=== PATIENT | female | born 1975 | race Two or more races ===

== ENCOUNTER 2020-12-11 10:34 | Emergency (ER) | payer OTHER ==
[2020-12-11 10:39] VITALS: BP 125/78; PULSE 62; TEMP 98.1; BMI 30.9
[2020-12-11] MEDS ORDERED: DIPHTH,PERTUSS(ACELL),TET 0.5 ML DISP.SYRIN IM ONE ×2 (10:57→11:23)
[2020-12-11 13:12] LABS: HIV INTERPRETATION NEGATIVE (NEGATIVE)
== END 2020-12-11 11:34 | disposition home or self-care (01) ==
LOC: JERFT 10:34
PROC: 3E0234Z Introduction of Serum, Toxoid and Vaccine into Muscle, Percutaneous Approach (ICD-10-PCS; principal; 2020-12-11)
DX: S61.452A Open bite of left hand, initial encounter (principal)
CPT/HCPCS: 36415; 80074; 84460; 86803; 87340; 87389; 90715; 99284-25

== ENCOUNTER 2021-02-07 21:29 | Emergency (ER) | payer OTHER ==
[2021-02-07 21:44] VITALS: BP 109/66; PULSE 75; TEMP 98.2; BMI 30.9
== END 2021-02-07 22:09 | disposition home or self-care (01) ==
LOC: JERFT 21:29 → JER 21:29 → JERFT 22:09
DX: Z20.822 Contact with and (suspected) exposure to COVID-19 (principal)
CPT/HCPCS: 99283-25; C9803; U0003; U0005

== ENCOUNTER 2021-02-16 19:32 | Emergency (ER) | payer OTHER ==
[2021-02-16 19:36] VITALS: BP 148/92; PULSE 66; TEMP 98.5; BMI 30.9
[2021-02-16] MEDS ORDERED: KETOROLAC TROMETHAMINE 30 MG/1 ML VIAL IM ONE (20:11)
[2021-02-16] MEDS ORDERED: KETOROLAC TROMETHAMINE 30 MG/1 ML VIAL ONE (20:14)
[2021-02-16 20:18] LABS: PH,URINE 5.5 (5.0-8.0); URINE APPEARANCE CLEAR; URINE BILIRUBIN NEGATIVE (NEGATIVE); URINE COLOR YELLOW; URINE GLUCOSE (UA) NEGATIVE (NEGATIVE); URINE KETONE NEGATIVE (NEGATIVE); URINE LEUK ESTERASE NEGATIVE (NEGATIVE); URINE NITRITE NEGATIVE (NEGATIVE); URINE PROTEIN NEGATIVE (NEGATIVE); URINE UROBILINOGEN 0.2 mg/dL (0.2-1.0)
[2021-02-16 20:21] LABS: HCG,QUALITATIVE URINE Negative
[2021-02-16] MEDS ORDERED: LIDOCAINE 5% TOPICAL PATCH TP ONE (20:58)
[2021-02-16] MEDS ORDERED: LIDOCAINE PATCH REMOVAL MC SCH (22:00)
== END 2021-02-16 21:14 | disposition home or self-care (01) ==
LOC: JERFT 19:32
PROC: 3E0233Z Introduction of Anti-inflammatory into Muscle, Percutaneous Approach (ICD-10-PCS; principal; 2021-02-16)
DX: M54.5 Low back pain (principal)
CPT/HCPCS: 81003; 84703; 87086; 96374; 99284-25

== ENCOUNTER 2021-06-27 19:46 | Emergency (ER) | payer OTHER ==
[2021-06-27 20:02] VITALS: BP 105/71; PULSE 70; TEMP 97; BMI 30.9
[2021-06-27] MEDS ORDERED: IBUPROFEN 600 MG TABLET (FP) PO ONE ×2 (20:30→20:42)
== END 2021-06-27 20:45 | disposition home or self-care (01) ==
LOC: JER 19:46 → JERFT 19:46
DX: J02.9 Acute pharyngitis, unspecified (principal); Z11.52 Encounter for screening for COVID-19
CPT/HCPCS: 87880; 99283-25; C9803; U0003; U0005

== ENCOUNTER 2021-10-29 09:45 | Emergency (ER) | payer OTHER | END 2021-10-29 11:01 | disposition home or self-care (01) | LOC: JVIRT 09:45 | DX: Z20.822 Contact with and (suspected) exposure to COVID-19 (principal) | CPT/HCPCS: C9803; Q3014-GT; U0003; U0005 ==

== ENCOUNTER 2022-07-05 17:34 | Emergency (ER) | payer OTHER | END 2022-07-05 19:00 | disposition home or self-care (01) | LOC: JVIRT 17:34 | DX: Z20.822 Contact with and (suspected) exposure to COVID-19 (principal) | CPT/HCPCS: 0241U-QW; G2251-GT ==

== ENCOUNTER 2023-07-12 15:18 | Emergency (ER) | payer OTHER ==
[2023-07-12 15:27] VITALS: BP 129/85; PULSE 80; RESP 18; TEMP 98.3; BMI 31.2
[2023-07-12 16:47] LABS: BASO % 0.4 % (0-2.0); EOS % 1.6 % (0-4.5); HEMATOCRIT 39.1 % (32.4-45.2); HEMOGLOBIN 12.9 GM/dL (10.7-15.3); LYMPH % 35.4 % (8-40); MCH 27.8 pg (25.7-33.7); MCHC 33.1 g/dl (32.0-36.0); MEAN CELL VOLUME 83.9 fl (80-96); MEAN PLT VOLUME 7.6 fl (7.5-11.1); MONO % 10.2 % (3.8-10.2); NEUT % 52.4 % (42.8-82.8); PLATELET COUNT 342 10^3/uL (134-434); RBC 4.66 M/mm3 (3.60-5.2); RDW 14.3 % (11.6-15.6); WHITE BLOOD COUNT 7.3 K/mm3 (4.0-10.0)
[2023-07-12 16:56] LABS: INR 1.02 (0.83-1.09); PROTHROMBIN TIME (PATIENT) 11.8 SEC (9.7-13.0)
[2023-07-12 16:58] LABS: ACTIVATED PTT 34.9 SECONDS (25.2-36.5)
[2023-07-12 17:42] LABS: POTASSIUM 3.9 mmol/L (3.5-5.1)
[2023-07-12 17:44] LABS: CALCIUM 8.6 mg/dL (8.5-10.1)
[2023-07-12 17:46] LABS: ALBUMIN 4.1 g/dl (3.4-5.0); BLOOD UREA NITROGEN 10.7 mg/dL (7-18); MAGNESIUM 2.1 mg/dL (1.8-2.4)
[2023-07-12 17:48] LABS: CREATININE 0.6 mg/dL (0.55-1.3)
[2023-07-12 17:51] LABS: BILIRUBIN,TOTAL 0.8 mg/dL (0.2-1); TOT PROT 7.8 g/dl (6.4-8.2)
== END 2023-07-12 18:08 | disposition home or self-care (01) ==
LOC: JER 15:18
DX: R07.2 Precordial pain (principal)
CPT/HCPCS: 36415; 71046-TC-FY; 80053; 83735; 84484; 85025; 85610; 85730; 93005; 93010; 99285-25

== ENCOUNTER 2024-08-29 21:00 | Emergency (ER) | payer OTHER ==
[2024-08-29 21:21] VITALS: BMI 31.7
[2024-08-29 22:31] LABS: BASO % 0.5 % (0-2.0); HEMATOCRIT 38.6 % (32.4-45.2); HEMOGLOBIN 12.8 GM/dL (10.7-15.3); LYMPH % 31.5 % (8-40); MCH 27.8 pg (25.7-33.7); MCHC 33.1 g/dl (32.0-36.0); MEAN CELL VOLUME 83.7 fl (80-96); MEAN PLT VOLUME 7.6 fl (7.5-11.1); PLATELET COUNT 324 10^3/uL (134-434); RBC 4.61 M/mm3 (3.60-5.2); RDW 15.3 % (11.6-15.6); WHITE BLOOD COUNT 7.5 K/mm3 (4.0-10.0)
[2024-08-29 22:48] LABS: CHLORIDE 106 mmol/L (98-107); POTASSIUM 3.8 mmol/L (3.5-5.1); SODIUM 139 mmol/L (136-145)
[2024-08-29] MEDS ORDERED: KETOROLAC TROMETHAMINE 15 MG/ML VIAL ONE (22:48)
[2024-08-29 22:50] LABS: CALCIUM 8.7 mg/dL (8.5-10.1)
[2024-08-29 22:51] LABS: ANION GAP 6 mmol/L (4-13); BLOOD UREA NITROGEN 11.8 mg/dL (7-18); CO2 27 mmol/L (21-32); GLUCOSE,RANDOM 88 mg/dL (74-106)
[2024-08-29 22:54] LABS: CREATININE 0.8 mg/dL (0.55-1.3); SGOT/AST 16 U/L (15-37); SGPT/ALT 24 U/L (13-61)
[2024-08-29 22:55] LABS: BILIRUBIN,TOTAL 0.2 mg/dL (0.2-1); TOT PROT 7.6 g/dl (6.4-8.2)
[2024-08-29 22:57] LABS: ALK PHOS 70 U/L (45-117)
[2024-08-29 23:10] LABS: PH,URINE 6.5 (5.0-8.0); URINE APPEARANCE CLEAR; URINE BILIRUBIN NEGATIVE (NEGATIVE); URINE COLOR DK YELLOW; URINE GLUCOSE (UA) NEGATIVE (NEGATIVE); URINE KETONE TRACE (NEGATIVE); URINE LEUK ESTERASE NEGATIVE (NEGATIVE); URINE NITRITE NEGATIVE (NEGATIVE); URINE PROTEIN NEGATIVE (NEGATIVE); URINE UROBILINOGEN 0.2 mg/dL (0.2-1.0)
[2024-08-29] MEDS: KETOROLAC TROMETHAMINE 15 MG/ML VIAL IVPUSH ONE (23:44)
[2024-08-30] MEDS ORDERED: METHOCARBAMOL 500 MG TABLET ONE (00:24)
[2024-08-30] MEDS ORDERED: LIDOCAINE 5% TOPICAL PATCH ONE (00:24)
[2024-08-30] MEDS: LIDOCAINE 5% TOPICAL PATCH TP ONE (00:30)
[2024-08-30] MEDS: METHOCARBAMOL 500 MG TABLET PO ONE (00:30)
[2024-08-30 01:18] VITALS: BP 124/81; PULSE 63; RESP 17; TEMP 97.6
== END 2024-08-30 01:23 | disposition home or self-care (01) ==
LOC: JER 21:00
PROC: 3E0333Z Introduction of Anti-inflammatory into Peripheral Vein, Percutaneous Approach (ICD-10-PCS; principal; 2024-08-29)
DX: R10.9 Unspecified abdominal pain (principal)
CPT/HCPCS: 36415; 74176-TC; 80053; 81003; 84702; 85025; 87086; 99284-25